=== PATIENT | male | born 1960 | race Caucasian/White ===

== ENCOUNTER 2016-10-19 13:32 | Emergency (ER) | payer OTHER ==
[~2016-10-19] VITALS: Ht 172.7 cm; Wt 77.2 kg
[~2016-10-19 13:32] MED LIST: ADULT LOW STREN81 M2 PO; ANAPROX DS550 M1 PO; ASACOL400 MG PO; ASPIR 8181 M1 PO; ATARAX,VISTARIL25 MG PO; ATORVASTATIN CA40 MG PO; BACTRIM,SEPT1 TABLET PO; BENTYL20 MG PO; CIPRO500 MG PO; CLEOCIN300 MG PO; CLINDAMYCIN HC300 MG PO; CLOTRIMAZOLE15 GM TP; COMPAZINE5 MG PO; DELTASONE10 MG PO; DIABETA5 MG PO; DOXYCYCLINE HY100 M3 PO; Diabeta,Micronase PO; ENALAPRIL MALEAT5 M1 PO; FLAGYL250 MG PO; FLAGYL500 MG PO; FLEXERIL10 MG PO; GABAPENTIN300 MG PO; GLUCOPHAGE1000 MG PO; Glucotrol PO; HYDROCODON-ACE1 EAC7 PO; IMODIUM2 MG PO; INDOCIN25 MG PO; JANUVIA100 MG PO; K-DUR20 MEQ PO; LANTUS 10100 UNITS/ SC; LANTUS 3 M100 UNITS1 SC; LEVAQUIN500 MG PO; LEVAQUIN750 MG PO; LEVEMIR100 UNIT/2 SC; LIDODERM 5% P1 PATCH TD; LORTAB 5-325 M1 EACH PO; MELOXICAM7.5 MG PO; METFORMIN HCL1000 MG PO; MOBIC7.5 MG PO; MOTRIN600 MG PO; MOTRIN800 MG PO; Maalox, Mylanta PO; NAPROSYN-EC500 MG PO; NAPROSYN500 MG PO; NEURONTIN300 MG PO; NORCO 5/3251 TABLET PO; OMEPRAZOLE40 M1 PO; OXYCODONE HCL10 MG PO; OXYMORPHONE HCL5 M1 PO; PANTOPRAZOLE SO40 MG PO; PERCOCET 10/1 TABLET PO; PERCOCET 5/31 TABLET PO; PROTONIX40 MG PO; Phenergan PO; PriLOSEC OTC PO; QUESTRAN4 GM/PACKE PO; SIMVASTATIN20 M1 PO; TAMIFLU75 MG PO; TORADOL30 MG/ML IM; VICODIN 5-3001 EACH PO; Vancocin Oral Soluti PO; ZITHROMAX Z-PA250 MG PO; ZOFRAN ODT4 MG PO
[2016-10-19 14:48] LABS: BASOPHIL COUNT 0.1 K/uL (0-0.1); EOSINOPHIL (%) 1.6 % (0-5); EOSINOPHIL COUNT 0.2 K/uL (0-0.3); HEMATOCRIT 47.3 % (38.0-50.0); IMMATURE GRANULOCYTE (%) 0.2 % (0.0-0.7); IMMATURE GRANULOCYTE COUNT 0.3 K/uL; LYMPHOCYTE COUNT 2.3 K/uL (1.0-2.8); MCHC 36.6 G/DL (30.0-36.0); MCV 79.4 FL (86-99); MEAN PLAT.VOLUME 9.7 uM^3 (9.0-12.4); MONOCYTE COUNT 0.7 K/uL (0-0.8); NEUTROPHIL (%) 77.1 % (45-76); NEUTROPHIL COUNT 11.4 K/uL (1.8-6.4); PLATELET COUNT 347 K/uL (156-360); RBC DIS.WIDTH-CV 12.7 % (11.8-14.6); RBC DIS.WIDTH-SD 36.1 % (39-53); RED BLOOD COUNT 5.96 M/uL (4.00-5.50); WHITE BLOOD COUNT 14.8 K/uL (4.1-10.2)
[2016-10-19 14:59] LABS: CHLORIDE 96 mEq/L (99-109); POTASSIUM 4.5 mEq/L (3.7-5.4); SODIUM 129 mEq/L (136-147)
[2016-10-19 15:02] LABS: ANION GAP 9 MEQ/L (2-14)
[2016-10-19 15:03] LABS: TOTAL BILIRUBIN 0.6 mg/dL (0.0-1.0)
[2016-10-19 15:04] LABS: ALKALINE PHOSPHATASE 153 IU/L (3-129)
[2016-10-19 15:05] LABS: GFR ESTIMATE (CALCULATED) > 59 mL/min/
[2016-10-19 15:06] LABS: UREA NITROGEN (BUN) 16 mg/dL (9-23)
[2016-10-19 15:09] LABS: GLUCOSE 577 mg/dL (70-99)
[2016-10-19] MEDS ORDERED: MOTRIN600 MG PO (16:53)
[2016-10-19] MEDS ORDERED: BACLOFEN10 MG PO (16:53)
[2016-10-19] MEDS ORDERED: PERCOCET 5/31 TABLET PO (16:53)
[2016-10-19 17:06] LABS: POINT-OF-CARE METER ID UU14100415
[2016-10-19] MEDS ORDERED: LEVEMIR100 UNIT/2 SC ×2 (17:26)
[2016-10-19] MEDS ORDERED: GLUCOPHAGE1000 MG PO (17:26)
[2016-10-19 17:36] VITALS: BP 124/84
== END 2016-10-19 17:37 | disposition home or self-care (01) ==
LOC: EME 13:32
PROVIDERS: Emergency Medicine
DX: S20.212A Contusion of left front wall of thorax, initial encounter (principal); R10.12 Left upper quadrant pain; E11.65 Type 2 diabetes mellitus with hyperglycemia; E78.5 Hyperlipidemia, unspecified; V49.40XA Driver injured in collision with unspecified motor vehicles in traffic accident, initial encounter; F17.200 Nicotine dependence, unspecified, uncomplicated; Z71.6 Tobacco abuse counseling; Z79.84 Long term (current) use of oral hypoglycemic drugs; Z88.0 Allergy status to penicillin
CPT/HCPCS: 71101; 73030; 74177; 80053; 82948; 85025; 99281; 99285; J1885; J2270; J2405; J7030

== ENCOUNTER 2017-02-07 23:07 | Emergency (ER) | payer OTHER ==
[~2017-02-07] VITALS: Ht 172.7 cm; Wt 78.3 kg
[~2017-02-07 23:07] MED LIST changes: +BACLOFEN10 MG PO
[2017-02-08 00:52] VITALS: BP 127/86
== END 2017-02-08 00:54 | disposition home or self-care (01) ==
LOC: EME 23:07
PROC: 3E0234Z Introduction of Serum, Toxoid and Vaccine into Muscle, Percutaneous Approach (ICD-10-PCS; principal; 2017-02-07)
DX: S50.311A Abrasion of right elbow, initial encounter (principal); W20.8XXA Other cause of strike by thrown, projected or falling object, initial encounter; F17.200 Nicotine dependence, unspecified, uncomplicated
CPT/HCPCS: 73080; 99281; 99284

== ENCOUNTER 2017-06-09 18:24 | Emergency (ER) | payer OTHER ==
[~2017-06-09] VITALS: Ht 172.7 cm; Wt 77.3 kg
[2017-06-09 19:29] LABS: MCH 29.3 PG (29.0-34.0); MCHC 35.2 G/DL (30.0-36.0); MCV 83.2 FL (86-99); MEAN PLAT.VOLUME 9.1 uM^3 (9.0-12.4); PLATELET COUNT 319 K/uL (156-360); RBC DIS.WIDTH-CV 12.2 % (11.8-14.6); RBC DIS.WIDTH-SD 37.2 % (39-53); RED BLOOD COUNT 5.53 M/uL (4.00-5.50); WHITE BLOOD COUNT 14.5 K/uL (4.1-10.2)
[2017-06-09 19:42] LABS: CHLORIDE 104 mEq/L (99-109); POTASSIUM 3.9 mEq/L (3.7-5.4); SODIUM 135 mEq/L (136-147)
[2017-06-09 19:43] LABS: GLUCOSE 346 mg/dL (70-99)
[2017-06-09 19:45] LABS: ANION GAP 9 MEQ/L (2-14)
[2017-06-09 19:47] LABS: GFR ESTIMATE (CALCULATED) > 59 mL/min/
[2017-06-09 19:48] LABS: UREA NITROGEN (BUN) 10 mg/dL (9-23)
[2017-06-09 19:50] LABS: TROP-I INTERPRETATION NEGATIVE; TROPONIN-I < 0.01 ng/mL (0.0-0.30)
[2017-06-09] MEDS ORDERED: PERCOCET 5/31 TABLET PO (20:20)
[2017-06-09 20:31] VITALS: BP 127/88
== END 2017-06-09 20:32 | disposition home or self-care (01) ==
LOC: EME 18:24
DX: S29.011A Strain of muscle and tendon of front wall of thorax, initial encounter (principal); M94.0 Chondrocostal junction syndrome [Tietze]; E78.5 Hyperlipidemia, unspecified; E11.9 Type 2 diabetes mellitus without complications; Z79.4 Long term (current) use of insulin; F17.200 Nicotine dependence, unspecified, uncomplicated
CPT/HCPCS: 71020; 80048; 84484; 85027; 93005; 99281; 99283

== ENCOUNTER 2017-08-01 05:22 | Day surgery (SDC) | payer OTHER ==
[~2017-08-01] VITALS: Ht 172.7 cm; Wt 77.0 kg
[~2017-08-01 05:22] MED LIST changes: +CARAFATE1 GM PO; +METFORMIN HCL850 MG PO; +NEXIUM 24HR20 M2 PO
[2017-08-01 06:08] VITALS: BP 134/90
[2017-08-01 06:08] LABS: POINT-OF-CARE METER ID UU14174212
[2017-08-01] MEDS ORDERED: NORCO 5/3251 TABLET PO (08:55)
[2017-08-01 09:12] LABS: POINT-OF-CARE METER ID UU13113675
[2017-08-01 10:40] VITALS: BP 123/76
[2017-08-01 11:28] VITALS: BP 131/80
== END 2017-08-01 11:30 | disposition home or self-care (01) ==
LOC: SDC 05:22
PROVIDERS: Surgery
DX: K80.10 Calculus of gallbladder with chronic cholecystitis without obstruction (principal); E11.9 Type 2 diabetes mellitus without complications; Z79.4 Long term (current) use of insulin; E78.00 Pure hypercholesterolemia, unspecified; K21.9 Gastro-esophageal reflux disease without esophagitis; F17.200 Nicotine dependence, unspecified, uncomplicated; Z88.0 Allergy status to penicillin; Z88.1 Allergy status to other antibiotic agents; Z88.8 Allergy status to other drugs, medicaments and biological substances
CPT/HCPCS: 74300; 82948; 88304; 88305; C1769; J0330; J1170; J1885; J2250; J2405; J2710; J3010; S0020

== ENCOUNTER 2017-09-27 06:04 | Emergency (ER) | payer OTHER ==
[~2017-09-27] VITALS: Ht 172.7 cm; Wt 78.4 kg
[2017-09-27 06:39] LABS: HEMATOCRIT 48.2 % (38.0-50.0); HEMOGLOBIN 16.9 G/DL (12.5-16.6); MCH 29.1 PG (29.0-34.0); MCHC 35.1 G/DL (30.0-36.0); MCV 83.1 FL (86-99); PLATELET COUNT 380 K/uL (156-360); RBC DIS.WIDTH-CV 12.6 % (11.8-14.6); RBC DIS.WIDTH-SD 38.2 % (39-53); WHITE BLOOD COUNT 15.1 K/uL (4.1-10.2)
[2017-09-27 06:50] LABS: ALBUMIN 3.8 g/dL (3.2-4.8); CHLORIDE 102 mEq/L (99-109); POTASSIUM 4.2 mEq/L (3.7-5.4); SODIUM 136 mEq/L (136-147)
[2017-09-27 06:52] LABS: GLUCOSE 301 mg/dL (70-99)
[2017-09-27 06:53] LABS: TOTAL PROTEIN 7.2 g/dL (6.4-8.3)
[2017-09-27 06:54] LABS: TOTAL BILIRUBIN 0.7 mg/dL (0.0-1.0)
[2017-09-27 06:56] LABS: ALKALINE PHOSPHATASE 135 IU/L (3-129); CREATININE 0.8 mg/dL (0.6-1.3); GFR ESTIMATE (CALCULATED) > 59 mL/min/ (58.99-99999)
[2017-09-27 06:57] LABS: UREA NITROGEN (BUN) 9 mg/dL (9-23)
[2017-09-27 06:58] LABS: AST (GOT) 19 IU/L (2-34)
[2017-09-27 06:59] LABS: ALT (GPT) 23 IU/L (3-49); LIPASE 3 U/L (1.0-51.0)
[2017-09-27 08:53] LABS: APPEARANCE CLEAR ((CLEAR)); BILIRUBIN NEGATIVE; BLOOD NEGATIVE; COLOR YELLOW ((YELLOW)); GLUCOSE (STRIP) >=500; KETONES NEGATIVE; LEUKOCYTES NEGATIVE; NITRITE NEGATIVE; PROTEIN (STRIP) NEGATIVE; UCUL ADDED? NO
[2017-09-27 09:16] LABS: SPECIFIC GRAVITY 1.082 (1.000-1.030)
[2017-09-27] MEDS ORDERED: ZOFRAN4 MG PO (10:49)
[2017-09-27] MEDS ORDERED: PROMETHAZINE HC25 M1 PO (10:49)
[2017-09-27 11:16] VITALS: BP 132/85
== END 2017-09-27 11:21 | disposition home or self-care (01) ==
LOC: EME 06:04
DX: R10.9 Unspecified abdominal pain (principal); E11.9 Type 2 diabetes mellitus without complications; E78.5 Hyperlipidemia, unspecified; M19.90 Unspecified osteoarthritis, unspecified site; F17.200 Nicotine dependence, unspecified, uncomplicated; Z90.49 Acquired absence of other specified parts of digestive tract; Z79.4 Long term (current) use of insulin; Z88.0 Allergy status to penicillin
CPT/HCPCS: 74177; 80053; 81003; 83690; 85027; 99281; 99285; J2405; J7030

== ENCOUNTER → 2017-12-15 | Outpatient (CLI) | payer OTHER ==
[~2017-12-15] MED LIST changes: +PROMETHAZINE HC25 M1 PO; +ZOFRAN4 MG PO
== END | disposition home or self-care (01) ==
LOC: NUC 06:52
DX: R11.2 Nausea with vomiting, unspecified (principal)
CPT/HCPCS: 78264; A9537

== ENCOUNTER 2018-05-17 01:32 | Inpatient (IN) | payer OTHER ==
[~2018-05-17] VITALS: Ht 172.7 cm; Wt 73.7 kg
[2018-05-17] VITALS (8 sets, daily range): BP systolic 85–127; BP diastolic 60–97
[2018-05-17 02:08] LABS: HEMATOCRIT 50.6 % (38.0-50.0); HEMOGLOBIN 17.8 G/DL (12.5-16.6); MCH 29.7 PG (29.0-34.0); MCHC 35.2 G/DL (30.0-36.0); MCV 84.3 FL (86-99); PLATELET COUNT 388 K/uL (156-360); RBC DIS.WIDTH-CV 12.4 % (11.8-14.6); WHITE BLOOD COUNT 31.3 K/uL (4.1-10.2)
[2018-05-17 02:10] LABS: ALBUMIN 4.2 g/dL (3.2-4.8); CHLORIDE 99 mEq/L (99-109)
[2018-05-17 02:11] LABS: POTASSIUM 4.1 mEq/L (3.7-5.4); SODIUM 137 mEq/L (136-147)
[2018-05-17 02:13] LABS: GLUCOSE 206 mg/dL (70-99); TOTAL PROTEIN 7.8 g/dL (6.4-8.3)
[2018-05-17 02:15] LABS: TOTAL BILIRUBIN 1.1 mg/dL (0.0-1.0)
[2018-05-17 02:16] LABS: ALKALINE PHOSPHATASE 119 IU/L (3-129); CREATININE 0.9 mg/dL (0.6-1.3); GFR ESTIMATE (CALCULATED) > 59 mL/min/ (58.99-99999)
[2018-05-17 02:18] LABS: AST (GOT) 15 IU/L (2-34); UREA NITROGEN (BUN) 18 mg/dL (9-23)
[2018-05-17 02:19] LABS: ALT (GPT) 14 IU/L (3-49)
[2018-05-17 02:20] LABS: LIPASE 8 U/L (1.0-51.0)
[2018-05-17 07:33] LABS: BASOPHIL (%) 0.4 % (0-1); BASOPHIL COUNT 0.1 K/uL (0-0.1); EOSINOPHIL (%) 0.6 % (0-5); EOSINOPHIL COUNT 0.1 K/uL (0-0.3); HEMATOCRIT 45.4 % (38.0-50.0); IMMATURE GRANULOCYTE (%) 0.4 % (0.0-0.7); LYMPHOCYTE (%) 11.9 % (15-42); LYMPHOCYTE COUNT 2.4 K/uL (1.0-2.8); MCH 29.3 PG (29.0-34.0); MCHC 34.4 G/DL (30.0-36.0); MCV 85.3 FL (86-99); MONOCYTE (%) 3.5 % (3-12); MONOCYTE COUNT 0.7 K/uL (0-0.8); NEUTROPHIL (%) 83.2 % (45-76); NEUTROPHIL COUNT 16.5 K/uL (1.8-6.4); PLATELET COUNT 329 K/uL (156-360); RBC DIS.WIDTH-CV 12.7 % (11.8-14.6); RBC DIS.WIDTH-SD 39.2 % (39-53); RED BLOOD COUNT 5.32 M/uL (4.00-5.50); WHITE BLOOD COUNT 19.8 K/uL (4.1-10.2)
[2018-05-17 07:34] LABS: HEMOGLOBIN 15.6 G/DL (12.5-16.6)
[2018-05-17 07:42] LABS: CHLORIDE 104 MEQ/L (99-109); CREATININE 0.8 MG/DL (0.6-1.3); GFR ESTIMATE (CALCULATED) > 59 mL/min/ (58.99-99999); GLUCOSE 200 mg/dL (70-99); POTASSIUM 4.5 MEQ/L (3.7-5.4); SODIUM 138 MEQ/L (136-147); UREA NITROGEN (BUN) 15 mg/dL (9-23)
[2018-05-17 13:35] LABS: STOOL OCCULT BLD 1ST SPECIMEN NEGATIVE
[2018-05-17 14:10] LABS: C DIFF TOXIN NEGATIVE (NEGATIVE)
[2018-05-17] MEDS ORDERED: NEURONTIN100 MG PO (16:54)
[2018-05-17] MEDS ORDERED: ZOFRAN4 MG PO (16:57)
[2018-05-17] MEDS ORDERED: PROMETHAZINE HC25 M1 PO (16:59)
[2018-05-17] MEDS ORDERED: OXYCODONE HCL10 MG PO (17:00)
[2018-05-18 03:10] VITALS: BP 110/70
[2018-05-18 08:50] VITALS: BP 109/83
[2018-05-18 12:06] VITALS: BP 94/67
[2018-05-18 15:32] VITALS: BP 111/74
[2018-05-18 19:54] VITALS: BP 107/75
[2018-05-18 23:57] VITALS: BP 119/74
[2018-05-19 05:06] VITALS: BP 96/54
[2018-05-19 06:59] LABS: BASOPHIL (%) 0.9 % (0-1); BASOPHIL COUNT 0.1 K/uL (0-0.1); EOSINOPHIL (%) 5.3 % (0-5); EOSINOPHIL COUNT 0.5 K/uL (0-0.3); HEMATOCRIT 44.8 % (38.0-50.0); HEMOGLOBIN 15.5 G/DL (12.5-16.6); IMMATURE GRANULOCYTE (%) 0.3 % (0.0-0.7); LYMPHOCYTE (%) 29.5 % (15-42); LYMPHOCYTE COUNT 2.9 K/uL (1.0-2.8); MCH 29.1 PG (29.0-34.0); MCHC 34.6 G/DL (30.0-36.0); MCV 84.1 FL (86-99); MONOCYTE (%) 6.1 % (3-12); MONOCYTE COUNT 0.6 K/uL (0-0.8); NEUTROPHIL (%) 57.9 % (45-76); NEUTROPHIL COUNT 5.7 K/uL (1.8-6.4); PLATELET COUNT 288 K/uL (156-360); RBC DIS.WIDTH-CV 12.4 % (11.8-14.6); RED BLOOD COUNT 5.33 M/uL (4.00-5.50); WHITE BLOOD COUNT 9.8 K/uL (4.1-10.2)
[2018-05-19 07:06] LABS: INTER. NORMALIZED RATIO 1.2
[2018-05-19 07:09] LABS: PTT 30.2 SEC (25-37)
[2018-05-19 07:41] VITALS: BP 121/84
[2018-05-19] MEDS ORDERED: LEVEMIR100 UNIT/2 SC (11:04)
[2018-05-19] MEDS ORDERED: CIPRO500 MG PO (11:04)
== END 2018-05-19 12:06 | disposition home or self-care (01) | DRG 872 ==
LOC: EME 01:32 → 4EAST 05:18 → EDOF 05:18 → ENRESERV 05:22 → 4EAST 05:59 → ENRESERV 05-18 15:54 → 4EAST 05-19 12:06
PROVIDERS: Hospitalist; Internal Medicine; Specialist
DX: A41.9 Sepsis, unspecified organism (principal); A09 Infectious gastroenteritis and colitis, unspecified; F17.200 Nicotine dependence, unspecified, uncomplicated; E11.65 Type 2 diabetes mellitus with hyperglycemia; E78.5 Hyperlipidemia, unspecified; E11.42 Type 2 diabetes mellitus with diabetic polyneuropathy; I48.91 Unspecified atrial fibrillation; R19.7 Diarrhea, unspecified; K22.9 Disease of esophagus, unspecified; E86.0 Dehydration; K21.9 Gastro-esophageal reflux disease without esophagitis; K44.9 Diaphragmatic hernia without obstruction or gangrene; M19.90 Unspecified osteoarthritis, unspecified site; Z88.1 Allergy status to other antibiotic agents; Z88.0 Allergy status to penicillin; Z88.8 Allergy status to other drugs, medicaments and biological substances; Z79.4 Long term (current) use of insulin; Z90.49 Acquired absence of other specified parts of digestive tract
CPT/HCPCS: 74177; 80048 91; 80053; 81003; 82271; 82272; 82948; 83605; 83690; 85025; 85027; 85610; 85730; 87040; 87177; 87425-90; 87493; 87506; 93005; 99281; 99285; C9113; J0744; J1170; J1815; J2765; J3010; J7030; J7040; S0028; S0030